=== PATIENT | male | born 2000 | race Caucasian/White ===

== ENCOUNTER 2020-06-17 22:39 | Emergency (ER) | payer OTHER, SELFPAY ==
[2020-06-17 22:39] VITALS: BP 148/84; PULSE 82; RESP 18; TEMP 36.8; O2SAT 97; BMI 28.1
--- NOTE | 2020-06-17 23:07 | RAD_ITS ---
HISTORY: LEFT MIDDLE FINGER LACERATION. Technique: Left hand AP, lateral, and oblique radiographs Comparison: None available Findings: No acute fracture or dislocation. Osseous mineralization, joint spaces, and alignment otherwise appear preserved as imaged. Skin defect consistent with laceration is present on the radial/lateral side of the third digit distal interphalangeal joint,. RAD/Hand Min 3 Views IMPRESSION: No acute osseous abnormality identified in the Left hand. Evidence of laceration on the radial/lateral side of the third distal interphalangeal joint at 2324 Reported and signed by: Mario Lechuga MD Electronically Signed: Mario Lechuga MD at 23:23 EST Tel , Service support ,
--- NOTE | 2020-06-18 00:01 | ED.VIS.GEN ---
History of Present Illness Chief Complaint: Laceration Informant: Patient Narrative: Patient is a 20-year-old previously healthy male who presents [facility] for laceration to his left middle finger. He was at work and he reached up on some shelving and slid across a ridge. There is still some active bleeding upon arrival. He is not on any blood thinning medications. He is able to move the finger. Feels like there might be a slight loss of sensation the medial aspect. 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 Past Medical History - Allergies and Home Meds Allergies/Adverse Reactions: Allergies No Known Allergies Allergy (Verified 04/02/17 00:16) Primary Care Physician: Augusto Park MD [Primary Care Provider] - 7 Days for suture removal Prior records reviewed: Yes Past Medical History: None Surgical History: no surgical history Smoking Status: Never smoker Review of Systems All systems negative except as indicated General: Denies: Chills, Fever ENT: Denies: Rhinorrhea, Sore throat Cardiovascular: Denies: Chest pain, Palpitations Respiratory: Denies: Dyspnea, Cough, Dyspnea on exertion Gastrointestinal: Denies: Abdominal pain, Nausea, Vomiting Musculoskeletal: Reports: Extremity Pain. Denies: Back pain Skin: Reports: Wounds. Denies: Rash Neurological: Denies: Headache, Weakness, Numbness Physical Exam Vital Signs/Narrative: Vital Signs Temp Pulse Resp BP Pulse Ox 06/17/20 22:39 98.3 F 82 18 148/84 H 97 Inital Vital Signs reviewed: Yes General: Well nourished, Well developed, No Acute Distress Head: Normocephalic, Atraumatic Eyes: Perrl, EOMI ENT: Moist mucous membranes, No rhinorrhea Neck: Supple, Nontender Cardiovascular: Regular rate, Regular rhythm, No murmurs Respiratory: No distress, CTA bilaterally, Chest nontender Abdomen: Nondistended Back: Nontender, Normal Inspection Extremities: Nontender, No edema Skin: Normal color, No rash, - - 2.5cm U-shaped laceration with skin flap to the palmar aspect of left middle finger. He has full range of motion. Mild decreased sensation on the medial aspect. Slow venous ooze present. No foreign body appreciated. Neurological: Alert, Oriented x3, Normal Strength, Normal Sensation Psychological: Normal affect, Normal Mood Diagnostic/Tx/Re-eval - Medical Decision Making Patient presents [facility] department for laceration to left middle finger. Patient up-to-date on vaccination. X-ray was obtained which did not reveal any osseous abnormality. There does not appear to be any tendon involvement as he has full range of motion. Wound was repaired using sutures. The wound was partially avulsed and he understands he could lose that part of the skin. Patient tolerated the repair well after the digital block. He is to monitor for evidence of infection. Patient discharged home in stable condition. Sutures need to be removed in 7 to 10 days. Patient understands and is agreeable this plan. All questions answered. Procedures Procedure(s): Laceration repair: Informed consent was obtained before procedure started. The appropriate timeout was taken. The area was prepped and draped in the usual sterile fashion. Local anesthesia was achieved using digital block with 5cc of lidocaine 1% without epinephrine. The wound was copiously irrigated. 6 5-0 Ethilon simple interrupted sutures were placed. A dressing was applied to the area and anticipatory guidance, as well as standard post procedure care, was explained. Return precautions are given. The patient tolerated the procedure well without any apparent complications. Follow-up visit set for suture removal and evaluation of laceration. ED Disposition - Plan for ED Patient: Disposition: Home or Assisted Living Diagnosis: Finger laceration Instructions: ED Laceration, Hand: All Closures Referrals: Augusto Park MD [Primary Care Provider] - 7 Days for suture removal
[2020-06-18] MEDS: Lidocaine 1% (20 ml mdv) 20 ML Vial 5 ML INFILT (01:03)
== END 2020-06-18 01:03 | disposition home or self-care (01) ==
PROVIDERS: Emergency Provider Emergency Medicine; PCP Family Medicine
DX: S61.213A Laceration without foreign body of left middle finger without damage to nail, initial encounter (principal); W45.8XXA Other foreign body or object entering through skin, initial encounter; Y93.89 Activity, other specified; Y92.89 Other specified places as the place of occurrence of the external cause; Y99.0 Civilian activity done for income or pay
CPT/HCPCS: 12001; 73130; 99282